=== PATIENT | male | born 1970 | race Two or more races ===

== ENCOUNTER 2024-08-20 12:00 | Day surgery (SDC) | payer MEDICAID, SELFPAY ==
[2024-08-20] VITALS (15 sets, daily range): BP systolic 112–159; BP diastolic 71–99; PULSE 68–80; RESP 14–19; TEMP 36.1–36.6; O2SAT 95–100; BMI 34.7
[2024-08-20] MEDS: BENZOCAINE 20% (Hurricaine) SPRAY 1 DOSE TOP (13:48)
[2024-08-20] MEDS: SODIUM CHLORIDE 0.9% 500 ML 100 ML 20 ML IV (13:48)
[2024-08-20] MEDS: DiphenhydrAMINE INJ 50 MG/ML VIAL 25 MG IV (14:00)
[2024-08-20] MEDS: fentaNYL CIT INJ 50 mCg/ML AMP 2ML (ASD USE ONLY) IV (14:18)
[2024-08-20] MEDS: MIDAZOLAM INJ 1 MG/ML VIAL 2 ML (ASD USE ONLY) 2 MG IV (14:27)
--- NOTE | 2024-08-20 15:30 | SUR.PHASEII ---
1520 Pt more awake and alert. Denies pain or N/V. Abd soft. Pt zenaida Po fluids
--- NOTE | 2024-08-20 16:17 | SUR.PHASEII ---
1553 Pt assessment unchanged. No complaints. Abd remains soft. No rectal bleeding seen. Ambulates with steady gait. Able to dress self. Pt and father given dc instructions via window glazier helper SANIYA. Clip card given. Both state understanding. Pt meets dc criteria-to home.
== END 2024-08-20 15:53 | disposition home or self-care (01) ==
PROVIDERS: PCP Family Medicine; Referring Provider Internal Medicine Gastroenterology; Visit Provider Internal Medicine Gastroenterology
PROC: (CPT 43239; 2024-08-20 13:00)
PROC: 0DJD8ZZ Inspection of Lower Intestinal Tract, Via Natural or Artificial Opening Endoscopic (ICD-10-PCS; CPT 45378; 2024-08-20 13:00)
DX: K29.61 Other gastritis with bleeding (principal); K44.9 Diaphragmatic hernia without obstruction or gangrene; K29.51 Unspecified chronic gastritis with bleeding; B96.81 Helicobacter pylori [H. pylori] as the cause of diseases classified elsewhere; D12.5 Benign neoplasm of sigmoid colon; K62.1 Rectal polyp
CPT/HCPCS: 43239; A4217; A4649; J1200; J2250; J3010; J7040; A9270